=== PATIENT | male | born 1995 | race Caucasian/White ===

== ENCOUNTER 2017-08-02 16:29 | Emergency (ER) | payer OTHER ==
[~2017-08-02] VITALS: Ht 190.5 cm; Wt 90.7 kg
[~2017-08-02 16:29] MED LIST: Amoxicillin500 MG PO; Bactrim 400-801 EACH PO; Bactrim Ds Tab1 EACH PO; CEPH500 PO; Crutch1 EACH MISC; IBUP400 PO; IBUP600 PO; MUPI1NAS; Norco 5-325 Ta1 EACH PO; Permethrin60 GM TOP; Ultram50 MG PO; Zofran Odt4 MG SL
[2017-08-02] MEDS ORDERED: IBUP400 PO (18:12)
== END 2017-08-02 18:20 | disposition home or self-care (01) ==
LOC: ER 16:29
DX: M79.672 Pain in left foot (principal); F17.200 Nicotine dependence, unspecified, uncomplicated; Z88.6 Allergy status to analgesic agent; Z79.899 Other long term (current) drug therapy; Z86.14 Personal history of Methicillin resistant Staphylococcus aureus infection
CPT/HCPCS: 73610; 73630; 96374; 99283; J1885